=== PATIENT | male | born 1995 | race Caucasian/White ===

== ENCOUNTER 2017-01-10 23:37 | Emergency (ER) | payer BC ==
[~2017-01-10] VITALS: Ht 172.7 cm; Wt 104.5 kg
[~2017-01-10 23:37] MED LIST: ALBU1AER9 INH
[2017-01-10 23:49] VITALS: TEMP 37.1; Ht 172.7 cm; Wt 104.5 kg
[2017-01-11] MEDS ORDERED: ALBUT/IPRATROP 3MG/0.5MG NEB 3 ML VIAL INH STA (00:02)
[2017-01-11] MEDS ORDERED: DEXAMETHASONE SOD INJ 10 MG/ML VIAL PO ONE (00:15)
[2017-01-11] MEDS ORDERED: VNTHFA/IN INH (00:42)
[2017-01-11] MEDS ORDERED: PRED50TA PO (00:51)
[2017-01-11 01:07] VITALS: BP 133/68; PULSE 81; O2SAT 99
--- NOTE | 2017-01-11 04:46 | EMERGENCY ROOM VISIT NOTE ---
History First contact with patient: 23:47 Chief Complaint: RESPIRATORY PROBLEMS Stated Complaint: LOWER LUNG/DIAPHRAM PAIN Nursing Triage Summary: Pain in diaphragm History of Present Illness The patient is a 21 year old male who presents to the Emergency Room with complaints of cough, chest congestion and wheezing for the past 2 days. Patient states when he coughs he has pain. He has had pleurisy before symptoms similar. He suffers from asthma. Patient denies constant chest pain, dyspnea, headache, neck sickness, back pain, abdominal pain, leg pain or swelling. No recent travel. No current recreational drug use. She states he still smokes. Review of Systems See HPI for pertinent positives & negatives. A total of 10 systems reviewed and were otherwise negative. Past Medical/Surgical History Medical Problems: (1) Antisocial personality disorder (2) Anxiety (3) Asthma (4) Depression (5) Depression (6) Marijuana abuse (7) Mood disorder Social History Smoking Status: Current Every Day Smoker Alcohol Use: occasionally Drug Use: marijuana Marital Status: single Housing Status: lives with family Occupation Status: [employer] student Current/Historical Medications Scheduled Prednisone (Prednisone), 50 MG PO DAILY Scheduled PRN Albuterol Hfa (Ventolin Hfa), 2-4 PUFFS INH Q6H PRN for SOB/Wheezing Allergies Coded Allergies: NO KNOWN DRUG ALLERGIES (Verified Allergy, Unknown, none, 01/11/17) Physical Exam Vital Signs Date Time Temp Pulse Resp B/P (MAP) Pulse Ox O2 Delivery O2 Flow Rate FiO2 01/11/17 01:07 81 18 133/68 99 01/10/17 23:49 37.1 90 20 133/76 98 Room Air Pain Rating (0-10): 4.0 Physical Exam VITALS: Vitals are noted on the nurse's note and reviewed by myself. Vital signs stable. GENERAL: Pleasant male, in no acute distress, nondiaphoretic, well-developed well-nourished. SKIN: The skin was without rashes, erythema, edema, or bruising. There is no tenting of the skin. Capillary reflex less than 2 seconds. HEAD: Normocephalic atraumatic. EARS: External auditory canals clear, tympanic membranes pearly betts without erythema or effusion bilaterally. EYES: Pupils equal round and reactive to light and accommodation. Conjunctivae without injection, sclerae without icterus. Extraocular movements intact. NOSE: Patent, turbinates without inflammation or discharge. No sinus tenderness. MOUTH: Mucous membranes moist. Pharynx without erythema or exudate. Uvula midline. Airway patent. Tongue does not deviate. NECK: Supple without nuchal rigidity. No lymphadenopathy. No thyromegaly. Cervical spine is nontender. No JVD. HEART: Regular rate and rhythm without murmurs gallops or rubs. LUNGS: Mild diffuse end expiratory wheezes, without rales or rhonchi. No dullness to percussion. No retractions or accessory muscle use. ABDOMEN: Positive bowel sounds x 4. Normal tympanic percussion. Soft, nontender, without masses or organomegaly. Hwang sign negative. No guarding or rebound tenderness. MUSCULOSKELETAL: No muscle atrophy, erythema, or edema noted. NEURO: Patient was alert and oriented to person place and time. Normal sensation to light and sharp touch. No focal neurological deficits. Medical Decision & Procedures Medications Administered Medications (Trade) Dose Ordered Sig/Alphonse Route Start Time Stop Time Status Last Admin Dose Admin Albuterol/ Ipratropium (Duoneb) 3 ml NOW STAT INH 01/11/17 00:02 01/11/17 00:04 DC 01/11/17 00:13 3 ML Dexamethasone Sodium Phosphate (Decadron Inj) 10 mg NOW ONCE PO 01/11/17 00:15 01/11/17 00:16 DC 01/11/17 00:13 10 MG ED Course Prior records/ancillary studies reviewed. Triage Nursing notes reviewed. The patient's history was concerning for respiratory difficulties. Differential diagnosis: Etiologies such as infections, reactive airway disease, pneumonia, pneumothorax , COPD, CHF, cardiac ischemia, pulmonary embolism, musculoskeletal, gastrointestinal, as well as others were entertained. Physical examination: As above. ER treatment provided: Nebulizer, Decadron On reassessment the patient felt better. Diagnostic interpretation by me: Imaging studies: Chest x-ray with no acute consolidation, pneumothorax or free air per my interpretation This appears to be consistent with asthmatic bronchitis. Patient felt much better after being medicated as above. No signs of pneumonia. He was not hypoxic. He was satting well. He was advised take medications as directed and to follow-up family care in a few days or here in the ER sooner for chest pain, difficulty breathing, fevers, worsening signs or symptoms or as needed. Patient ambulated out of the ER without difficulties. By the evaluation outlined above emergent etiologies such as CHF, cardiac ischemia, pulmonary embolism, pneumonia, pneumothorax, musculoskeletal, serious bacterial infections, as well as others were deemed relatively unlikely. The pt informed about the findings as listed above. All questions were answered and pleased with the treatment. Return instructions were outlined and the patient was discharged in stable condition. Outpatient prescription management: Prednisone Referral: The patient was referred back to their primary care physician for follow-up in 2 to 3 days for a recheck of the current condition. Medical Decision As above Impression Primary Impression: Pleurisy Additional Impression: Asthmatic bronchitis Departure Information Dispostion Home / Self-Care Condition GOOD Prescriptions Prednisone (Prednisone) 50 Mg Tab 50 MG PO DAILY for 4 Days, #4 TAB Prov: Michelle Crouch ., SEPIDEH 01/11/17 Forms WORK / SCHOOL INSTRUCTIONS, HOME CARE DOCUMENTATION FORM, IMPORTANT VISIT INFORMATION Patient Instructions Bronchitis Acute Dc, [facility] Additional Instructions Albuterol Inhaler: Take 2 puffs four times daily for five days, then as needed. Prednisone 50mg: Once daily until the prescription is finished. It is best to take this earlier in the day as some patients note occasional difficulty falling asleep when taken in the late evening. Acetaminophen(Tylenol) may be used for fever or pain. Use 1000mg every six hours as needed. Avoid using more than 3000mg in a 24 hour period. (AND/OR) Ibuprofen(Motrin, Advil) may be used for fever or pain. Use 600mg every six hours as needed. Take with food. Avoid using more than 2400mg in a 24 hour period. Do not use 2400mg per day for more than three consecutive days without physician direction. Prolonged inappropriate use can lead to stomach upset or ulcers. Rest and drink plenty of fluids. Avoid smoke/smoking, fumes, dust, or any triggers in the past that may have affected your breathing. Continue current medications. Return to the ER for chest pain, difficulty breathing, fevers, vomiting, worsening of your condition, or as needed. Follow up with your primary physician this week for a recheck of your current condition. Problem Qualifiers Additional Impression: Asthmatic bronchitis Asthma severity: unspecified severity Asthma complication type: with acute exacerbation Qualified Codes: J45.901 - Unspecified asthma with (acute) exacerbation
--- NOTE | 2017-01-11 07:09 | DIAGNOSTIC IMAGING REPORT ---
CHEST 2 VIEWS ROUTINE CLINICAL HISTORY: Cough. COMPARISON STUDY: Chest radiograph January 02, 2016. FINDINGS: Lung volumes are normal. There is no pneumothorax or pleural effusion. Cardiac size is normal. Mediastinal contours are normal. There is no evidence of pulmonary edema. There is subtle reticulonodular interstitial thickening within the left mid and lower lung. There is no lobar consolidation. IMPRESSION: No consolidation. Subtle left lower lung interstitial thickening could reflect a mild infectious process. Electronically signed by: Jeffrey Parikh M.D. 01/11/2017 7:08 AM Dictated Date/Time: 01/11/2017 7:06 AM
== END 2017-01-11 01:08 | disposition home or self-care (01) ==
LOC: C.EDB 23:39 → C.EDA 01-11 01:08
DX: R09.1 Pleurisy (principal); J45.901 Unspecified asthma with (acute) exacerbation; F17.200 Nicotine dependence, unspecified, uncomplicated; F60.2 Antisocial personality disorder; F41.9 Anxiety disorder, unspecified; F32.9 Major depressive disorder, single episode, unspecified; F12.10 Cannabis abuse, uncomplicated